=== PATIENT | female | born 1935 | race Caucasian/White ===

== ENCOUNTER → 2017-06-08 | Outpatient (CLI) | payer MEDICARE ==
[~2017-06-08] MED LIST: CALC-451 PO; CIPR500T87 PO; DIGO0.25 PO; FENO48TA16 PO; FURO-93 PO; GABA300C10 PO; GLIP-164 PO; HYDR1TAB12 PO; IBAN150T PO; LEVO150T5 PO; METF500T9 PO; METO25TA35 PO; OMEP-110 PO; POTA20TA6 PO; QUIN324C3 PO; REGADENOSON 0.4 MG/5 ML SYRINGE ONE; UBID60CA2 PO; WARF2.5T73 PO; ZOLP5TAB6 PO; [UNRECOGNIZED DRUG - CODE] TL
== END | disposition home or self-care (01) ==
LOC: RAD 08:48
PROVIDERS: ATTEND Internal Medicine Cardiovascular Disease
DX: R07.89 Other chest pain (principal)
CPT/HCPCS: 78452; 93017; A9502; J2785

== ENCOUNTER → 2020-05-27 | Outpatient (CLI) | payer MEDICARE ==
[~2020-05-27] MED LIST changes: -GLIP-164 PO; +GLIP10TA24 PO; -HYDR1TAB12 PO; +HYDR1TAB13 PO; -IBAN150T PO; +IBAN150T15 PO; +METF-754 PO; -METF500T9 PO; -REGADENOSON 0.4 MG/5 ML SYRINGE ONE; -UBID60CA2 PO; +UBID60CA4 PO; +WARF2.5T32 PO; -WARF2.5T73 PO; +[UNRECOGNIZED DRUG - CODE] TL; -[UNRECOGNIZED DRUG - CODE] TL
== END | disposition home or self-care (01) ==
LOC: CFH 08:42
PROVIDERS: ATTEND Internal Medicine Cardiovascular Disease
DX: I08.3 Combined rheumatic disorders of mitral, aortic and tricuspid valves (principal); R06.02 Shortness of breath; I48.91 Unspecified atrial fibrillation; I10 Essential (primary) hypertension
CPT/HCPCS: 93306

== ENCOUNTER 2021-02-24 10:39 | Day surgery (SDC) | payer MEDICARE ==
[~2021-02-24] VITALS: Ht 149.9 cm; Wt 68.6 kg
[~2021-02-24 10:39] MED LIST changes: +POTA-143 PO; -POTA20TA6 PO
[2021-02-24 11:18] VITALS: BP 157/68
[2021-02-24] MEDS ORDERED: PLEASE ENTER HEIGHT AND WEIGHT MC SCH (11:30)
[2021-02-24] MEDS ORDERED: SODIUM CHLORIDE 0.9% 1,000 ML IV SCH (11:30)
[2021-02-24 11:34] LABS: BASOPHILS % (AUTO) 1 % (0-1); EOSINOPHILS % (AUTO) 2 % (1-7); LYMPHOCYTES % (AUTO) 12 % (22-44); MEAN CORPUSCULAR HGB CONC 33.4 g/dL (32.4-35.8); MEAN PLATELET VOLUME 8.5 fL (7.4-10.4); MONOCYTES % (AUTO) 6 % (2-9); NEUTROPHILS % (AUTO) 78 % (42-75); PLATELET COUNT 215 x10^3/uL (130-400); RED BLOOD COUNT 4.31 x10^6/uL (3.82-5.3); RED CELL DISTRIBUTION WIDTH 15.8 % (9.6-15.2)
[2021-02-24] MEDS ORDERED: MIDAZOLAM 1 MG/ML, 2ML ONE (11:36)
[2021-02-24] MEDS ORDERED: MAGNESIUM (11:36)
[2021-02-24] MEDS ORDERED: LOTRISONE (11:36)
[2021-02-24] MEDS ORDERED: DEXAMETHASONE (11:36)
[2021-02-24] MEDS ORDERED: FENO145T19 PO (11:36)
[2021-02-24] MEDS ORDERED: FENTANYL PF 100 MCG/2ML ONE (11:36)
[2021-02-24] MEDS ORDERED: MUPIROCIN (11:37)
[2021-02-24] MEDS ORDERED: LIDOCAINE 1%, 20ML ONE (11:37)
[2021-02-24] MEDS ORDERED: VANCOMYCIN 500 MG ONE (11:37)
[2021-02-24] MEDS ORDERED: KETOROLAC (11:38)
[2021-02-24] MEDS ORDERED: LATANOPROST (11:39)
[2021-02-24] MEDS ORDERED: KDUR PO (11:44)
[2021-02-24 11:45] LABS: INTERNATIONAL NORMALIZED RATIO 1.23 (0.93-1.1)
[2021-02-24] MEDS ORDERED: MAGNESIUM PO (11:47)
[2021-02-24 11:49] LABS: ALBUMIN 3.8 g/dL (3.4-5.0); ANION GAP 6 mmol/L (5-15); CALCIUM 9.5 mg/dL (8.5-10.1); CHLORIDE 103 mmol/L (98-107)
[2021-02-24] MEDS ORDERED: GLIPIZIDE (11:53)
[2021-02-24] MEDS ORDERED: VANCOMYCIN 1,000 MG in SODIUM CHLORIDE 0.9% 100 ML IV ONE (12:00)
[2021-02-24 12:04] LABS: ALANINE AMINOTRANSFERASE 15 U/L (12-78); ALKALINE PHOSPHATASE 80 U/L (45-117); TOTAL PROTEIN 7.3 g/dL (6.4-8.2)
[2021-02-24 12:15] LABS: CREATININE 1.32 mg/dL (0.55-1.02)
[2021-02-24 12:29] LABS: BILIRUBIN,TOTAL 1.1 mg/dL (0.2-1.0)
[2021-02-24] MEDS ORDERED: HOLD MEDICATION MC PRN (13:00)
[2021-02-24] MEDS ORDERED: HYDROcodone/APAP 5/325 TABLET PO PRN (13:00)
[2021-02-24] MEDS ORDERED: SODIUM CHLORIDE FLUSH 10ML SYR IVF SCH (21:00)
== END 2021-02-24 16:01 | disposition home or self-care (01) ==
LOC: CACL 10:39
PROVIDERS: ATTEND Internal Medicine Cardiovascular Disease
DX: Z45.010 Encounter for checking and testing of cardiac pacemaker pulse generator [battery] (principal); I48.20 Chronic atrial fibrillation, unspecified; I27.20 Pulmonary hypertension, unspecified; I10 Essential (primary) hypertension; E78.5 Hyperlipidemia, unspecified; E11.9 Type 2 diabetes mellitus without complications; M54.30 Sciatica, unspecified side; M19.90 Unspecified osteoarthritis, unspecified site; E66.3 Overweight; Z68.42 Body mass index [BMI] 45.0-49.9, adult; Z79.01 Long term (current) use of anticoagulants; Z79.84 Long term (current) use of oral hypoglycemic drugs; Z79.890 Hormone replacement therapy; Z79.891 Long term (current) use of opiate analgesic; Z79.899 Other long term (current) drug therapy; Z88.0 Allergy status to penicillin; Z88.5 Allergy status to narcotic agent; Z88.8 Allergy status to other drugs, medicaments and biological substances
CPT/HCPCS: 33228; 36415; 71046; 80053; 80162; 85025; 85610; 93005; 99156; 99157; C1785; J2250; J3010; J3370